=== PATIENT | male | born 1990 | race Two or more races ===

== ENCOUNTER 2020-07-05 17:18 | Emergency (ER) | payer BC, MEDICAID ==
[~2020-07-05] VITALS: Ht 177.8 cm; Wt 89.8 kg
[2020-07-05 17:37] VITALS: BP 143/89
[2020-07-05] MEDS ORDERED: LIDOCAINE 1% HCL (LOCAL ANESTH.) INJ 20ML MDV IJ ONE (19:15)
[2020-07-05] MEDS ORDERED: TETANUS-DIPTH-ACEL PERTUSSIS 0.5ML SYR Tdap IM ONE (19:15)
[2020-07-05] MEDS ORDERED: ACETAMINOPHEN 500 MG TAB PO ONE (19:30)
[2020-07-05] MEDS ORDERED: IBUPROFEN 800 MG TAB PO ONE (19:30)
== END 2020-07-05 21:41 | disposition home or self-care (01) ==
LOC: ER 17:18
DX: S41.111A Laceration without foreign body of right upper arm, initial encounter (principal); S41.131A Puncture wound without foreign body of right upper arm, initial encounter; W01.0XXA Fall on same level from slipping, tripping and stumbling without subsequent striking against object, initial encounter; Y93.89 Activity, other specified; Y92.89 Other specified places as the place of occurrence of the external cause; Y99.8 Other external cause status
CPT/HCPCS: 12001; 73080; 90471; 90715; 99283; J2001

== ENCOUNTER 2022-09-04 23:18 | Emergency (ER) | payer BC, MEDICAID ==
[~2022-09-04] VITALS: Ht 177.8 cm; Wt 87.0 kg
[2022-09-05] MEDS ORDERED: AMOX-277 PO (01:07)
[2022-09-05] MEDS ORDERED: KETOROLAC TROMETH 60MG/2ML VIAL IM ONE (01:15)
[2022-09-05 01:23] VITALS: BP 131/86
== END 2022-09-05 01:20 | disposition home or self-care (01) ==
LOC: ER 23:18
DX: K04.7 Periapical abscess without sinus (principal); Z79.2 Long term (current) use of antibiotics
CPT/HCPCS: 96372; 99283; J1885